=== PATIENT | female | born 1980 | race Two or more races ===

== ENCOUNTER 2018-01-18 16:25 | Emergency (ER) | payer SELFPAY | END 2018-01-18 17:00 | disposition home or self-care (01) | LOC: ER 16:25 | DX: L03.114 Cellulitis of left upper limb (principal); Z88.0 Allergy status to penicillin | CPT/HCPCS: 99283 ==

== ENCOUNTER 2018-03-30 14:27 | Emergency (ER) | payer SELFPAY ==
[2018-03-30] MEDS ORDERED: KETOROLAC 30 MG/ML INJ. IV (15:00)
[2018-03-30 15:22] LABS: ADD MAN DIFF? NO
[2018-03-30 15:25] LABS: BASO % 1 % (0-3); EOS # 0.1 x10^3/uL (0.0-0.7); EOS % 1 % (0-3); HEMATOCRIT 38.9 % (36.0-47.0); HEMOGLOBIN 13.1 g/dL (12.0-15.5); LYMPH % 37 % (24-48); MEAN CORPUSCULAR HEMOGLOBIN 28 pg (25-35); MEAN CORPUSCULAR HGB CONC 34 g/dL (31-37); MEAN CORPUSCULAR VOLUME 82 fL (79-100); MONO # 0.4 x10^3/uL (0.0-1.1); MONO % 7 % (0-9); NEUT % 54 % (31-73); PLATELET COUNT 213 x10^3/uL (140-400); RED BLOOD COUNT 4.75 x10^6/uL (3.50-5.40); RED CELL DISTRIBUTION WIDTH 13.1 % (11.5-14.5); WHITE BLOOD COUNT 5.5 x10^3/uL (4.0-11.0)
[2018-03-30 15:37] LABS: ANION GAP 8 (6-14); BLOOD UREA NITROGEN 13 mg/dL (7-20); BUN/CREATININE RATIO 19 (6-20); CALCIUM 8.6 mg/dL (8.5-10.1); CARBON DIOXIDE 28 mmol/L (21-32); CHLORIDE 101 mmol/L (98-107); CREATININE 0.7 mg/dL (0.6-1.0); GFR 95.2; GLUCOSE 347 mg/dL (70-99); POTASSIUM 3.9 mmol/L (3.5-5.1); SODIUM 137 mmol/L (136-145)
[2018-03-30] MEDS: NAPROXEN 500 MG TABLET PO (15:39)
[2018-03-30 15:43] LABS: ALBUMIN 3.7 g/dL (3.4-5.0); ALBUMIN/GLOBULIN RATIO 0.9 (1.0-1.7); ALK PHOS 84 U/L (46-116); ALT (SGPT) 74 U/L (14-59); AST (SGOT) 39 U/L (15-37); MAGNESIUM 1.8 mg/dL (1.8-2.4); TOTAL BILIRUBIN 0.4 mg/dL (0.2-1.0); TOTAL PROTEIN 7.7 g/dL (6.4-8.2)
[2018-03-30 15:43] LABS: D-DIMER < 0.27 ug/mlFEU (0.00-0.50)
[2018-03-30 15:45] LABS: TROPONINI < 0.017 ng/mL (0.000-0.055)
[2018-03-30 15:53] LABS: CKMB MASS < 0.5 ng/mL (0.0-3.6); CREATINE KINASE 33 U/L (26-192)
== END 2018-03-30 17:08 | disposition home or self-care (01) ==
LOC: ER 14:27
DX: R07.89 Other chest pain (principal); R42 Dizziness and giddiness; R06.02 Shortness of breath; F17.200 Nicotine dependence, unspecified, uncomplicated; Z88.0 Allergy status to penicillin
CPT/HCPCS: 36415; 71045; 80053; 82553; 83735; 84484; 85025; 85379; 93005; 99285-25